=== PATIENT | female | born 1965 | race American Indian/Alaskan Native ===

== ENCOUNTER 2016-10-27 07:53 | Emergency (ER) | payer OTHER ==
[2016-10-27 08:07] VITALS: BP 137/85
[2016-10-27] MEDS ORDERED: PROVENTIL IH ONE (08:22)
[2016-10-27] MEDS ORDERED: DUONEB *Not for PRN Use IH ONE (08:23)
--- NOTE | 2016-10-27 08:25 | Emergency Department Report ---
Minor Respiratory - HPI Chief Complaint: Sore Throat Stated Complaint: COUGH AND SORE THROAT Time Seen by Provider: 10/27/16 08:10 Duration: 3 Days Pain Location: Throat, Chest Severity: mild Minor Respiratory: Yes Sore Throat, Yes Cough, No Rhinorrhea, No Able to Tolerate Fluids, No Ear Pain, No Sick Contacts, No Hemoptysis, No Chest Pain, No Shortness of Breath, No Fever ED Review of Systems ROS: Stated complaint: COUGH AND SORE THROAT Other details as noted in HPI Comment: Unobtainable due to pts medical conditions Constitutional: no symptoms reported, see HPI. denies: chills, diaphoresis, fever, malaise Eyes: as per HPI. denies: eye pain, eye discharge, vision change ENT: as per HPI, throat pain. denies: ear pain, dental pain, hearing loss, epistaxis Respiratory: no symptoms reported, see HPI, cough (non prod). denies: orthopnea , shortness of breath, SOB with exertion, SOB at rest, stridor Cardiovascular: as per HPI. denies: chest pain, palpitations, dyspnea on exertion, orthopnea, edema, syncope, paroxysmal nocturnal dyspnea Endocrine: no symptoms reported, see HPI. denies: excessive sweating, flushing , intolerance to cold, intolerance to heat Gastrointestinal: as per HPI. denies: abdominal pain, nausea, vomiting Genitourinary: as per HPI. denies: urgency, dysuria Musculoskeletal: as per HPI. denies: back pain Skin: as per HPI. denies: rash, lesions Neurological: as per HPI. denies: headache, weakness Psychiatric: as per HPI. denies: anxiety, depression Hematological/Lymphatic: as per HPI. denies: easy bleeding ED Past Medical Hx - Past Medical History Previous Medical History?: Yes Hx Diabetes: Yes (noninsulin dependent) Additional medical history: cholesterol. obesity - Surgical History Additional Surgical History: ECTOPIC X 2--BOTH TUBES REMOVED - Family History Family history: no significant - Social History Smoking Status: Never Smoker Substance Use Type: None - Medications Home Medications: Home Medications Medication Instructions Recorded Confirmed Last Taken Type AtorvaSTATin 20 mg PO DAILY 09/12/15 09/12/15 Unknown History Famotidine [Pepcid] 20 mg PO BID #30 tablet 09/12/15 Unknown Rx glipiZIDE [Glucotrol] 5 mg PO BID 09/12/15 09/12/15 Unknown History metFORMIN [Glucophage] 1,000 mg PO BID 09/12/15 09/12/15 Unknown History traMADol [Ultram 50 MG tab] 50 mg PO Q6HR PRN #20 tablet 09/12/15 Unknown Rx Erythromycin [Erythromycin Ophth 10 applic OP TID #1 tube 09/26/15 Unknown Rx Oint] Benzonatate [Tessalon Perles] 100 mg PO BID PRN #12 capsule 10/27/16 Unknown Rx Cefdinir 300 mg PO BID #20 capsule 10/27/16 Unknown Rx Minor Respiratory Exam - Exam General: Vital signs noted. No distress. Alert and acting appropriately. non ill appearing no fever non toxic appearing HEENT: Yes Pharyngeal Erythema, Yes Moist Mucous Membranes, No Pharyngeal Exudates, No Rhinorrhea, No Conjuctival Injection, No Frontal Tenderness, No Maxillary Tenderness Ear: Neither TM Bulge, Neither TM Erythema, Neither EAC Pain, Neither EAC Discharge Neck: Yes Supple, No Adenopathy Lungs: Yes Good Air Exchange, Yes Ronchi (w cough), Yes Cough, No Wheezes, No Stridor, No Labored Respirations, No Retractions, No Use of Accessory Muscles, No Other Abnormal Lung Sounds Heart: Yes Regular (96 on exam but was coughing), No Murmur Abdomen: Yes Normal Bowel Sounds, No Tenderness, No Peritoneal Signs Skin: No Rash, No Edema Neurologic: Alert and oriented, no deficits. Musculoskeletal: Unremarkable. ambulatory wo sob or cp no jvd no edema ED Course Vital Signs 10/27/16 07:58 Temperature 97.6 F Pulse Rate 109 H Respiratory 17 Rate Blood Pressure 137/85 O2 Sat by Pulse 97 Oximetry - Reevaluation(s) Reevaluation #1: 10/27/16 09:38 to er w cough non prod and no fever dm also sore throat see exam rt tx w loosing of cough no cp no sob discussed bs w pt rocephin and home rx will fu w pcp verbalizes understanding ED Medical Decision Making - Radiology Data Radiology results: image reviewed interpreted by me: nap - Medical Decision Making diabetic w cough and pharyngitis no s/s sepsis no hypotension no fever hr 96 on exam but coughing non productive outpt care - Differential Diagnosis ro pna v urti Critical care attestation.: If time is entered above; I have spent that time in minutes in the direct care of this critically ill patient, excluding procedure time. ED Disposition Clinical Impression: Upper respiratory infection, Cough, Diabetes, Hyperglycemia, Pharyngitis Disposition: TO HOME OR SELFCARE Is pt being admited?: No Does the pt Need Aspirin: No Condition: Stable Instructions: Diabetes Mellitus Type 2 in Adults (ED), Upper Respiratory Infection (ED) Additional Instructions: follow Diabetic diet take meds as ordered follow blood sugar follow up pcp on Saturday over the counter flonase for 3-5 days Prescriptions: Benzonatate [Tessalon Perles] 100 mg PO BID PRN #12 capsule PRN Reason: Cough Cefdinir 300 mg PO BID #20 capsule Referrals: PRIMARY CAREMD [Primary Care Provider] - 3-5 Days MAU COTA MD [Staff Physician] - 3-5 Days
--- NOTE | 2016-10-27 09:17 | XRay Report ---
FINAL REPORT EXAM: XR CHEST ROUTINE 2V HISTORY: cough TECHNIQUE: Frontal and lateral views of the chest. PRIORS: None currently available. FINDINGS: Cardiac silhouette is within normal limits. There is no effusion. There is no pneumothorax. There is no consolidation. There are no suspicious osseous lesions. IMPRESSION: No acute cardiopulmonary findings.
[2016-10-27] MEDS ORDERED: ROCEPHIN IM ONE (09:30)
[2016-10-27] MEDS ORDERED: XYLOCAINE 1% MPF 5 mL INFILTRATI ONE (09:30)
== END 2016-10-27 10:45 | disposition home or self-care (01) ==
LOC: ED 07:53
DX: J06.9 Acute upper respiratory infection, unspecified (principal); E11.65 Type 2 diabetes mellitus with hyperglycemia; J02.9 Acute pharyngitis, unspecified; E78.00 Pure hypercholesterolemia, unspecified
CPT/HCPCS: 71020; 82962; 94640; 96372; 99283; J0696

== ENCOUNTER 2016-12-25 15:24 | Emergency (ER) | payer MEDICAID, OTHER ==
--- NOTE | 2016-12-25 17:28 | Emergency Department Report ---
Chief Complaint: Weakness Stated Complaint: DIZZY/LIGHT HEADED Time Seen by Provider: 12/25/16 17:25 - HPI History of Present Illness: PT c/o dizziness x 2-3 days PT states gradual onset - ROS Review of Systems: - chest pain + generalized weakness - Exam Vital Signs: Vital Signs 12/25/16 15:40 Temperature 98.2 F Pulse Rate 116 H Respiratory 20 Rate Blood Pressure 138/84 O2 Sat by Pulse 98 Oximetry Physical Exam: obese female no acute distress noted steady gait gcs 15 no focal weakness MSE screening note: Focused history and physical exam performed. Due to findings the following was ordered: labs, ekg ED Disposition for MSE Condition: Stable Referrals: PRIMARY CARE, [Primary Care Provider] - 3-5 Days
[2016-12-25 18:10] LABS: Basophils % (Auto) 0.8 % (0.0-1.8); Eosinophils % (Auto) 4.2 % (0.0-4.3); Hematocrit 38.8 % (30.3-42.9); Hemoglobin 12.2 gm/dl (10.1-14.3); Mean Corpuscular HGB Conc 31 % (30-34); Mean Corpuscular Volume 81 fl (79-97); Platelet Count 296 K/mm3 (140-440); Red Blood Count 4.79 M/mm3 (3.65-5.03); Red Cell Distribution Width 15.2 % (13.2-15.2); White Blood Count 9.7 K/mm3 (4.5-11.0)
[2016-12-25 18:12] LABS: Mean Corpuscular Hemoglobin 25 pg (28-32)
[2016-12-25 18:16] LABS: Alanine Aminotransferase 10 units/L (7-56); Albumin 4.1 g/dL (3.9-5); Albumin/Globulin Ratio 1.3 %; Alkaline Phosphatase 60 units/L (35-129); BUN/Creatinine Ratio 22; Bilirubin,Total < 0.20 mg/dL (0.1-1.2); Blood Urea Nitrogen 13 mg/dL (7-17); Calcium 9.5 mg/dL (8.4-10.2); Carbon Dioxide 25 mmol/L (22-30); Glucose 112 mg/dL (65-100); Total Protein 7.3 g/dL (6.3-8.2)
[2016-12-25 18:17] LABS: Anion Gap 20 mmol/L; Chloride 101.4 mmol/L (98-107); Potassium 4.3 mmol/L (3.6-5.0); Sodium 142 mmol/L (137-145)
[2016-12-25 19:00] LABS: Bilirubin,Urine NEG (Negative); Blood,Urine NEG (Negative); Ketones,Urine NEG (Negative); Leukocyte Esterase,Urine TR (Negative); Mucus,Urine FEW /HPF; Nitrite,Urine NEG (Negative); Protein,Urine <15 mg/dL mg/dL (Negative); Urobilinogen,Urine < 2.0 mg/dL (<2.0)
[2016-12-26] MEDS ORDERED: NACL 0.9% 1000 ML 1,000 ML IV ONE (01:21)
--- NOTE | 2016-12-26 01:46 | Emergency Department Report ---
- General Chief complaint: Weakness Stated complaint: DIZZY/LIGHT HEADED Time Seen by Provider: 12/25/16 17:25 Source: patient Mode of arrival: Ambulatory Limitations: No Limitations - History of Present Illness Initial comments: 51-year-old female with a past month history of obesity, diabetes, and elevated cholesterol presents to the hospital with complaints of generalized weakness and lightheadedness for 2-3 days. Symptoms worse with activity and exertion. Positive associated dyspnea on exertion. No chest pain reported. Dry cough reported. Patient also complains of numbness continue cessation 2 feet in the bases and felt like her legs gave out on her and she ambulates. One loose stool per day reported. No complaints of nausea, vomiting, melena, hematochezia , fever, or dysuria. PMD: None the patient does see a diabetic doctor. - Related Data Home Medications Medication Instructions Recorded Confirmed Last Taken AtorvaSTATin 20 mg PO DAILY 09/12/15 09/12/15 Unknown glipiZIDE [Glucotrol] 5 mg PO BID 09/12/15 09/12/15 Unknown metFORMIN [Glucophage] 1,000 mg PO BID 09/12/15 09/12/15 Unknown Previous Rx's Medication Instructions Recorded Last Taken Type Famotidine [Pepcid] 20 mg PO BID #30 tablet 09/12/15 Unknown Rx traMADol [Ultram 50 MG tab] 50 mg PO Q6HR PRN #20 tablet 09/12/15 Unknown Rx Erythromycin [Erythromycin Ophth 10 applic OP TID #1 tube 09/26/15 Unknown Rx Oint] Benzonatate [Tessalon Perles] 100 mg PO BID PRN #12 capsule 10/27/16 Unknown Rx Cefdinir 300 mg PO BID #20 capsule 10/27/16 Unknown Rx Gabapentin [Neurontin] 300 mg PO Q8HR #90 capsule 12/26/16 Unknown Rx Sulfamethoxazole/Trimethoprim 1 each PO BID #20 tablet 12/26/16 Unknown Rx [Bactrim DS TAB] Allergies Allergy/AdvReac Type Severity Reaction Status Date / Time No Known Allergies Allergy Verified 10/27/16 07:59 ED Review of Systems ROS: Stated complaint: DIZZY/LIGHT HEADED Other details as noted in HPI Comment: All other systems reviewed and negative Other: Constitutional: No fevers chills Eyes: No eye pain visual changes ENT: No ear pain or throat pain Neck: Denies pain Respiratory: As per HPI Cardiovascular: Denies chest pain, palpitations, syncope GI: Denies abdominal pain, nausea, vomiting, diarrhea : Denies dysuria Musculoskeletal: Denies back pain Skin: Drainage from right lower abdomen "mole" Neurologic: Denies headache Psychiatric: Denies suicidal ideation, hallucinations ED Past Medical Hx - Past Medical History Hx Diabetes: Yes (noninsulin dependent) Additional medical history: cholesterol. obesity - Surgical History Additional Surgical History: ECTOPIC X 2--BOTH TUBES REMOVED - Social History Smoking Status: Never Smoker Substance Use Type: None - Medications Home Medications: Home Medications Medication Instructions Recorded Confirmed Last Taken Type AtorvaSTATin 20 mg PO DAILY 09/12/15 09/12/15 Unknown History Famotidine [Pepcid] 20 mg PO BID #30 tablet 09/12/15 Unknown Rx glipiZIDE [Glucotrol] 5 mg PO BID 09/12/15 09/12/15 Unknown History metFORMIN [Glucophage] 1,000 mg PO BID 09/12/15 09/12/15 Unknown History traMADol [Ultram 50 MG tab] 50 mg PO Q6HR PRN #20 tablet 09/12/15 Unknown Rx Erythromycin [Erythromycin Ophth 10 applic OP TID #1 tube 09/26/15 Unknown Rx Oint] Benzonatate [Tessalon Perles] 100 mg PO BID PRN #12 capsule 10/27/16 Unknown Rx Cefdinir 300 mg PO BID #20 capsule 10/27/16 Unknown Rx Gabapentin [Neurontin] 300 mg PO Q8HR #90 capsule 12/26/16 Unknown Rx Sulfamethoxazole/Trimethoprim 1 each PO BID #20 tablet 12/26/16 Unknown Rx [Bactrim DS TAB] ED Physical Exam - General Limitations: No Limitations - Other Other exam information: General: No limitations, patient is alert in no acute distress Head exam: Atraumatic, normocephalic Eyes exam: Normal appearance, pupils equal reactive to light, extraocular movements intact, no nystagmus ENT: Moist mucous membrane Neck exam: Normal inspection, full range of motion, no meningismus nontender Respiratory exam: Clear to auscultation bilateral, no wheezes, rales, crackles Cardiovascular: Normal rate and rhythm, normal heart sounds Abdomen: Soft, nondistended, and nontender, with normal bowel sounds, no rebound, or guarding Extremity: Full range of motion normal inspection no deformity, no calf tenderness or edema, 2+ DP pulse equal bilateral Back: Normal Inspection, full range of motion, no tenderness Neurologic: Alert, oriented x3, cranial nerves intact, no motor or sensory deficit, [id number] intact Psychiatric: normal affect, normal mood Skin: Patient has a right lower quadrant skin tag or pedunculated skin lesion with mild purulent malodorous drainage however, no focal abscess appreciated. No surrounding skin erythema or warmth - Assessment Assessment Interval: Baseline - Level of Consciousness 1a. Level of Consciousness: alert - LOC Questions 1b. LOC Questions: answers correctly - LOC Command 1c. LOC Commands: performs tasks correctly - Best Gaze 2. Best Gaze: normal - Visual 3. Visual: no visual loss - Facial Palsy 4. Facial Palsy: normal symmetrical movement - Motor Arm 5b. Motor Arm Right: no drift 5a. Motor Arm Left: no drift - Motor Leg 6a. Motor Leg Left: no drift 6b. Motor Leg Right: no drift - Limb Ataxia 7. Limb Ataxia: absent - Sensory 8. Sensory: normal - Best Language 9. Best Language: no aphasia - Dysarthria 10. Dysarthria: normal - Extinction and Inattention 11. Extinction/Inattention: no abnormality - Scoring Total Score: 0 Stroke Severity: No Stroke Symptoms ED Course Vital Signs 12/25/16 12/25/16 12/26/16 15:40 22:52 00:49 Temperature 98.2 F 98.8 F Pulse Rate 116 H 108 H 92 H Pulse Rate [ Lying] Pulse Rate [ Sitting] Pulse Rate [ Standing] Respiratory 20 18 18 Rate Blood Pressure 138/84 140/76 Blood Pressure 136/72 [Left] Blood Pressure [Lying] Blood Pressure [Sitting] Blood Pressure [Standing] O2 Sat by Pulse 98 97 98 Oximetry 12/26/16 12/26/16 12/26/16 03:01 03:16 04:40 Temperature Pulse Rate 98 H 93 H Pulse Rate [ 103 H Lying] Pulse Rate [ 108 H Sitting] Pulse Rate [ 105 H Standing] Respiratory 16 17 Rate Blood Pressure Blood Pressure 116/55 100/57 [Left] Blood Pressure 121/72 [Lying] Blood Pressure 130/71 [Sitting] Blood Pressure 129/79 [Standing] O2 Sat by Pulse 99 100 Oximetry - Reevaluation(s) Reevaluation #1: 12/26/16 04:49 The patient received 1 L normal saline. States she feels somewhat better. She is ambulatory around the department and denies feeling dizzy for states her legs feel weak. Patient is able to ambulate without assistance and get in and out of bed without assistance. She denies back pain or urinary symptoms. ED Medical Decision Making - Lab Data Result diagrams: 12/25/16 17:40 12/25/16 17:40 Lab Results 12/25/16 12/25/16 12/25/16 Range/Units 17:40 17:40 18:04 WBC 9.7 (4.5-11.0) K/mm3 RBC 4.79 (3.65-5.03) M/mm3 Hgb 12.2 (10.1-14.3) gm/dl Hct 38.8 (30.3-42.9) % MCV 81 (79-97) fl MCH 25 L (28-32) pg MCHC 31 (30-34) % RDW 15.2 (13.2-15.2) % Plt Count 296 (140-440) K/mm3 Lymph % (Auto) 20.2 (13.4-35.0) % [place] % (Auto) 6.8 (0.0-7.3) % Eos % (Auto) 4.2 (0.0-4.3) % Baso % (Auto) 0.8 (0.0-1.8) % Lymph # 2.0 (1.2-5.4) K/mm3 [place] # 0.7 (0.0-0.8) K/mm3 Eos # 0.4 (0.0-0.4) K/mm3 Baso # 0.1 (0.0-0.1) K/mm3 Seg Neutrophils % 68.0 (40.0-70.0) % Seg Neutrophils # 6.6 (1.8-7.7) K/mm3 D-Dimer (0-234) ng/mlDDU Sodium 142 (137-145) mmol/L Potassium 4.3 (3.6-5.0) mmol/L Chloride 101.4 (98-107) mmol/L Carbon Dioxide 25 (22-30) mmol/L Anion Gap 20 mmol/L BUN 13 (7-17) mg/dL Creatinine 0.6 L (0.7-1.2) mg/dL Estimated GFR > 60 ml/min BUN/Creatinine Ratio 22 % Glucose 112 H (65-100) mg/dL POC Glucose 114 H (70-105) Calcium 9.5 (8.4-10.2) mg/dL Magnesium (1.7-2.3) mg/dL Total Bilirubin < 0.20 (0.1-1.2) mg/dL AST 8 (5-40) units/L ALT 10 (7-56) units/L Alkaline Phosphatase 60 (35-129) units/L Total Creatine Kinase (30-135) units/L CK-MB (CK-2) (0.0-4.0) ng/mL Troponin T < 0.010 (0.00-0.029) ng/mL Total Protein 7.3 (6.3-8.2) g/dL Albumin 4.1 (3.9-5) g/dL Albumin/Globulin Ratio 1.3 % TSH (0.270-4.200) mlU/mL Free T4 (0.76-1.46) ng/dL Urine Color (Yellow) Urine Turbidity (Clear) Urine pH (5.0-7.0) Ur Specific [place] (1.003-1.030) Urine Protein (Negative) mg/dL Urine Glucose (UA) (Negative) mg/dL Urine Ketones (Negative) mg/dL Urine Blood (Negative) Urine Nitrite (Negative) Urine Bilirubin (Negative) Urine Urobilinogen (<2.0) mg/dL Ur Leukocyte Esterase (Negative) Urine WBC (Auto) (0.0-6.0) /HPF Urine RBC (Auto) (0.0-6.0) /HPF U Epithel Cells (Auto) (0-13.0) /HPF Urine Mucus /HPF 12/25/16 12/25/16 12/26/16 Range/Units 18:16 23:58 01:40 WBC (4.5-11.0) K/mm3 RBC (3.65-5.03) M/mm3 Hgb (10.1-14.3) gm/dl Hct (30.3-42.9) % MCV (79-97) fl MCH (28-32) pg MCHC (30-34) % RDW (13.2-15.2) % Plt Count (140-440) K/mm3 Lymph % (Auto) (13.4-35.0) % [place] % (Auto) (0.0-7.3) % Eos % (Auto) (0.0-4.3) % Baso % (Auto) (0.0-1.8) % Lymph # (1.2-5.4) K/mm3 [place] # (0.0-0.8) K/mm3 Eos # (0.0-0.4) K/mm3 Baso # (0.0-0.1) K/mm3 Seg Neutrophils % (40.0-70.0) % Seg Neutrophils # (1.8-7.7) K/mm3 D-Dimer 135.00 (0-234) ng/mlDDU Sodium (137-145) mmol/L Potassium (3.6-5.0) mmol/L Chloride (98-107) mmol/L Carbon Dioxide (22-30) mmol/L Anion Gap mmol/L BUN (7-17) mg/dL Creatinine (0.7-1.2) mg/dL Estimated GFR ml/min BUN/Creatinine Ratio % Glucose (65-100) mg/dL POC Glucose 164 H (70-105) Calcium (8.4-10.2) mg/dL Magnesium (1.7-2.3) mg/dL Total Bilirubin (0.1-1.2) mg/dL AST (5-40) units/L ALT (7-56) units/L Alkaline Phosphatase (35-129) units/L Total Creatine Kinase (30-135) units/L CK-MB (CK-2) (0.0-4.0) ng/mL Troponin T (0.00-0.029) ng/mL Total Protein (6.3-8.2) g/dL Albumin (3.9-5) g/dL Albumin/Globulin Ratio % TSH (0.270-4.200) mlU/mL Free T4 (0.76-1.46) ng/dL Urine Color Yellow (Yellow) Urine Turbidity Clear (Clear) Urine pH 6.0 (5.0-7.0) Ur Specific [place] 1.018 (1.003-1.030) Urine Protein <15 mg/dl (Negative) mg/dL Urine Glucose (UA) Neg (Negative) mg/dL Urine Ketones Neg (Negative) mg/dL Urine Blood Neg (Negative) Urine Nitrite Neg (Negative) Urine Bilirubin Neg (Negative) Urine Urobilinogen < 2.0 (<2.0) mg/dL Ur Leukocyte Esterase Tr (Negative) Urine WBC (Auto) 1.0 (0.0-6.0) /HPF Urine RBC (Auto) 3.0 (0.0-6.0) /HPF U Epithel Cells (Auto) 1.0 (0-13.0) /HPF Urine Mucus Few /HPF 12/26/16 12/26/16 Range/Units 01:40 01:40 WBC (4.5-11.0) K/mm3 RBC (3.65-5.03) M/mm3 Hgb (10.1-14.3) gm/dl Hct (30.3-42.9) % MCV (79-97) fl MCH (28-32) pg MCHC (30-34) % RDW (13.2-15.2) % Plt Count (140-440) K/mm3 Lymph % (Auto) (13.4-35.0) % [place] % (Auto) (0.0-7.3) % Eos % (Auto) (0.0-4.3) % Baso % (Auto) (0.0-1.8) % Lymph # (1.2-5.4) K/mm3 [place] # (0.0-0.8) K/mm3 Eos # (0.0-0.4) K/mm3 Baso # (0.0-0.1) K/mm3 Seg Neutrophils % (40.0-70.0) % Seg Neutrophils # (1.8-7.7) K/mm3 D-Dimer (0-234) ng/mlDDU Sodium (137-145) mmol/L Potassium (3.6-5.0) mmol/L Chloride (98-107) mmol/L Carbon Dioxide (22-30) mmol/L Anion Gap mmol/L BUN (7-17) mg/dL Creatinine (0.7-1.2) mg/dL Estimated GFR ml/min BUN/Creatinine Ratio % Glucose (65-100) mg/dL POC Glucose (70-105) Calcium (8.4-10.2) mg/dL Magnesium 1.90 (1.7-2.3) mg/dL Total Bilirubin (0.1-1.2) mg/dL AST (5-40) units/L ALT (7-56) units/L Alkaline Phosphatase (35-129) units/L Total Creatine Kinase 89 (30-135) units/L CK-MB (CK-2) 1.2 (0.0-4.0) ng/mL Troponin T < 0.010 (0.00-0.029) ng/mL Total Protein (6.3-8.2) g/dL Albumin (3.9-5) g/dL Albumin/Globulin Ratio % TSH 2.080 (0.270-4.200) mlU/mL Free T4 1.21 (0.76-1.46) ng/dL Urine Color (Yellow) Urine Turbidity (Clear) Urine pH (5.0-7.0) Ur Specific [place] (1.003-1.030) Urine Protein (Negative) mg/dL Urine Glucose (UA) (Negative) mg/dL Urine Ketones (Negative) mg/dL Urine Blood (Negative) Urine Nitrite (Negative) Urine Bilirubin (Negative) Urine Urobilinogen (<2.0) mg/dL Ur Leukocyte Esterase (Negative) Urine WBC (Auto) (0.0-6.0) /HPF Urine RBC (Auto) (0.0-6.0) /HPF U Epithel Cells (Auto) (0-13.0) /HPF Urine Mucus /HPF - EKG Data -: EKG Interpreted by Me (sinus tach 108, possible inferior infarct, no ST elevation [place]) - EKG Data When compared to previous EKG there are: no significant change (compared to ) - Radiology Data Radiology results: image reviewed (chest x-ray: No acute findings) - Medical Decision Making Patient has no focal weakness, back pain, she has good distal pulses. Patient describes bilateral leg weakness with prolonged activity. She started a medication for neuropathy and follow-up will be encouraged patient also be started on antibiotic for mild purulent drainage from right abdominal skin tag. Dermatology follow-up will be encouraged - Differential Diagnosis [place], PE, viral syndrome, anemia, diabetic neuropathy, electrolyte abnormalit Critical Care Time: No Critical care attestation.: If time is entered above; I have spent that time in minutes in the direct care of this critically ill patient, excluding procedure time. ED Disposition Clinical Impression: Leg weakness, bilateral, Diabetes, Diabetic neuropathy, Infected skin lesion Disposition: TO HOME OR SELFCARE Is pt being admited?: No Condition: Stable Instructions: Diabetes Mellitus Type 2 in Adults (ED), Abscess (ED), Diabetic Neuropathy (ED) Additional Instructions: Take the Medications as prescribed. Is very important that you follow up with your primary care doctor or one the doctors provided for further workup and evaluation. Return if symptoms worsen. Also follow-up with a core inserter regarding your skin lesion. Prescriptions: Gabapentin [Neurontin] 300 mg PO Q8HR #90 capsule Sulfamethoxazole/Trimethoprim [Bactrim DS TAB] 1 each PO BID #20 tablet Referrals: MILAGRO ROBERTS MD [Staff Physician] - 3-5 Days ([facility]) JAS ROJO MD [Referring] - 3-5 Days ([facility]) EDMAR NAJERA MD [Referring] - 3-5 Days (Primary care doctor) [facility] [Provider Group] - 3-5 Days (Primary care clinic) Time of Disposition: 05:01
[2016-12-26 02:26] LABS: Creatine Kinase MB 1.2 ng/mL (0.0-4.0)
[2016-12-26 02:27] LABS: Creatine Kinase 89 units/L (30-135)
[2016-12-26 04:40] VITALS: BP 100/57
[2016-12-26] MEDS ORDERED: BACTRIM DS PO ONE (04:56)
--- NOTE | 2016-12-26 09:49 | XRay Report ---
ROUTINE CHEST, TWO VIEWS: HISTORY: Shortness of breath. The trachea, heart, mediastinal contour, lung morgan and bony thorax are unremarkable. IMPRESSION: Unremarkable chest x-ray.
== END 2016-12-26 05:15 | disposition home or self-care (01) ==
LOC: ED 15:24
DX: E11.40 Type 2 diabetes mellitus with diabetic neuropathy, unspecified (principal); L08.89 Other specified local infections of the skin and subcutaneous tissue; R53.1 Weakness; E78.00 Pure hypercholesterolemia, unspecified; E66.9 Obesity, unspecified
CPT/HCPCS: 36415; 71020; 80053; 81001; 82550; 82553; 82962; 83735; 84439; 84443; 84484; 85025; 85379; 93005; 93010; 96360; 99284; J7030

== ENCOUNTER 2020-04-18 10:11 | Emergency (ER) | payer SELFPAY ==
[2020-04-18] MEDS ORDERED: SODIUM CHLORIDE 0.9% 1000 ML 1,000 ML IV ONE (11:20)
[2020-04-18 11:21] VITALS: BP 124/77
[2020-04-18 11:21] LABS: Bilirubin,Urine NEG (Negative); Blood,Urine NEG (Negative); Color,Urine Straw (Yellow); Mucus,Urine FEW /HPF; Protein,Urine <15 mg/dL mg/dL (Negative); Urobilinogen,Urine < 2.0 mg/dL (<2.0)
--- NOTE | 2020-04-18 11:31 | Emergency Department Report ---
ED General Adult HPI - General Chief complaint: Urogenital-Female Stated complaint: VAGINAL PAIN/BACK PAIN Time Seen by Provider: 04/18/20 11:04 Source: patient Mode of arrival: Ambulatory Limitations: No Limitations - History of Present Illness Initial comments: Patient is a 54-year-old female presents emergency room complaints of dysuria that began a week ago. She has associated urinary frequency, urinary urgency, back pain, vaginal itching. She denies any abdominal pain, nausea, vomiting, diarrhea, fever, vaginal discharge. She states that she has a history of type 2 diabetes and is supposed to be on Metformin 1000 mg twice daily. She states it has been a week since she has taken her medication. She states that she was supposed to be getting it from [facility] but has not gotten it. She denies any medication allergies. - Related Data Home Medications Medication Instructions Recorded Confirmed Last Taken AtorvaSTATin 20 mg PO DAILY 09/12/15 09/12/15 Unknown glipiZIDE [Glucotrol] 5 mg PO BID 09/12/15 09/12/15 Unknown Previous Rx's Medication Instructions Recorded Last Taken Type Famotidine [Pepcid] 20 mg PO BID #30 tablet 09/12/15 Unknown Rx traMADoL [Ultram 50 MG tab] 50 mg PO Q6HR PRN #20 tablet 09/12/15 Unknown Rx Erythromycin [Erythromycin Ophth 10 applic OP TID #1 tube 09/26/15 Unknown Rx Oint] Benzonatate [Tessalon Perles] 100 mg PO BID PRN #12 capsule 10/27/16 Unknown Rx Cefdinir 300 mg PO BID #20 capsule 10/27/16 Unknown Rx Gabapentin [Neurontin] 300 mg PO Q8HR #90 capsule 12/26/16 Unknown Rx Sulfamethoxazole/Trimethoprim 1 each PO BID #20 tablet 12/26/16 Unknown Rx [Bactrim DS TAB] Fluconazole (Nf) [Diflucan TAB] 150 mg PO ONCE 1 Days #1 tablet 04/18/20 Unknown Rx Phenazopyridine [Pyridium] 100 mg PO TID #9 tab 04/18/20 Unknown Rx cephALEXin [Keflex] 500 mg PO BID 7 Days #14 cap 04/18/20 Unknown Rx metFORMIN [Glucophage] 1,000 mg PO BID 30 Days #60 tab 04/18/20 Unknown Rx Allergies Allergy/AdvReac Type Severity Reaction Status Date / Time No Known Allergies Allergy Verified 10/27/16 07:59 ED Review of Systems ROS: Stated complaint: VAGINAL PAIN/BACK PAIN Other details as noted in HPI Comment: All other systems reviewed and negative ED Past Medical Hx - Past Medical History Previous Medical History?: Yes Hx Diabetes: Yes Additional medical history: cholesterol. obesity - Surgical History Past Surgical History?: Yes Additional Surgical History: ECTOPIC X 2--BOTH TUBES REMOVED - Social History Smoking Status: Never Smoker Substance Use Type: None - Medications Home Medications: Home Medications Medication Instructions Recorded Confirmed Last Taken Type AtorvaSTATin 20 mg PO DAILY 09/12/15 09/12/15 Unknown History Famotidine [Pepcid] 20 mg PO BID #30 tablet 09/12/15 Unknown Rx glipiZIDE [Glucotrol] 5 mg PO BID 09/12/15 09/12/15 Unknown History traMADoL [Ultram 50 MG tab] 50 mg PO Q6HR PRN #20 tablet 09/12/15 Unknown Rx Erythromycin [Erythromycin Ophth 10 applic OP TID #1 tube 09/26/15 Unknown Rx Oint] Benzonatate [Tessalon Perles] 100 mg PO BID PRN #12 capsule 10/27/16 Unknown Rx Cefdinir 300 mg PO BID #20 capsule 10/27/16 Unknown Rx Gabapentin [Neurontin] 300 mg PO Q8HR #90 capsule 12/26/16 Unknown Rx Sulfamethoxazole/Trimethoprim 1 each PO BID #20 tablet 12/26/16 Unknown Rx [Bactrim DS TAB] Fluconazole (Nf) [Diflucan TAB] 150 mg PO ONCE 1 Days #1 tablet 04/18/20 Unknown Rx Phenazopyridine [Pyridium] 100 mg PO TID #9 tab 04/18/20 Unknown Rx cephALEXin [Keflex] 500 mg PO BID 7 Days #14 cap 04/18/20 Unknown Rx metFORMIN [Glucophage] 1,000 mg PO BID 30 Days #60 tab 04/18/20 Unknown Rx ED Physical Exam - General Limitations: No Limitations General appearance: alert, in no apparent distress - Head Head exam: Present: atraumatic, normocephalic - Eye Eye exam: Present: normal appearance - ENT ENT exam: Present: mucous membranes moist - Respiratory Respiratory exam: Present: normal lung sounds bilaterally. Absent: respiratory distress, wheezes, rales, rhonchi, stridor, chest wall tenderness, accessory muscle use, decreased breath sounds, prolonged expiratory - Cardiovascular Cardiovascular Exam: Present: regular rate, normal rhythm, normal heart sounds. Absent: systolic murmur, diastolic murmur, rubs, gallop - GI/Abdominal GI/Abdominal exam: Present: soft, normal bowel sounds. Absent: distended, tenderness, guarding, rebound, rigid - Back Exam Back exam: Absent: CVA tenderness (R), CVA tenderness (L) - Neurological Exam Neurological exam: Present: alert, oriented X3 - Psychiatric Psychiatric exam: Present: normal affect, normal mood - Skin Skin exam: Present: warm, dry, intact ED Course Vital Signs 04/18/20 04/18/20 04/18/20 11:19 11:59 15:36 Temperature 98 F Pulse Rate 110 H 98 H Respiratory 20 18 18 Rate Blood Pressure 124/77 [Left] O2 Sat by Pulse 97 99 99 Oximetry ED Medical Decision Making - Lab Data Result diagrams: 04/18/20 13:07 04/18/20 13:07 Lab Results 04/18/20 04/18/20 04/18/20 Range/Units 10:38 11:05 13:07 WBC 10.1 (4.5-11.0) K/mm3 RBC 4.92 (3.65-5.03) M/mm3 Hgb 13.2 (10.1-14.3) gm/dl Hct 41.2 (30.3-42.9) % MCV 84 (79-97) fl MCH 27 L (28-32) pg MCHC 32 (30-34) % RDW 15.1 (13.2-15.2) % Plt Count 237 (140-440) K/mm3 Lymph % (Auto) 20.1 (13.4-35.0) % [place] % (Auto) 5.8 (0.0-7.3) % Eos % (Auto) 2.5 (0.0-4.3) % Baso % (Auto) 0.9 (0.0-1.8) % Lymph # (Auto) 2.1 (1.2-5.4) K/mm3 [place] # (Auto) 0.6 (0.0-0.8) K/mm3 Eos # (Auto) 0.3 (0.0-0.4) K/mm3 Baso # (Auto) 0.1 (0.0-0.1) K/mm3 Seg Neutrophils % 70.7 H (40.0-70.0) % Nucleated RBC % Not Reportable Seg Neutrophils # 7.5 (1.8-7.7) K/mm3 WBC Morphology Not Reportable Hypersegmented Neuts Not Reportable Hyposegmented Neuts Not Reportable Hypogranular Neuts Not Reportable Smudge Cells Not Reportable Toxic Granulation Not Reportable Toxic Vacuolation Not Reportable Dohle Bodies Not Reportable Pelger-Huet Anomaly Not Reportable Jerry Rods Not Reportable Platelet Estimate Not Reportable Clumped Platelets Not Reportable Plt Clumps, EDTA Not Reportable Large Platelets Not Reportable Giant Platelets Not Reportable Platelet Satelliting Not Reportable Plt Morphology Comment Not Reportable RBC Morphology Not Reportable Dimorphic RBCs Not Reportable Polychromasia Not Reportable Hypochromasia Not Reportable Poikilocytosis Not Reportable Anisocytosis Not Reportable Microcytosis Not Reportable Macrocytosis Not Reportable Spherocytes Not Reportable Pappenheimer Bodies Not Reportable Sickle Cells Not Reportable Target Cells Not Reportable Tear Drop Cells Not Reportable Ovalocytes Not Reportable Helmet Cells Not Reportable [place] Bodies Not Reportable [employer] Rings Not Reportable [place] Cells Not Reportable Bite Cells Not Reportable Crenated Cell Not Reportable Elliptocytes Not Reportable Acanthocytes (Spur) Not Reportable Rouleaux Not Reportable Hemoglobin C Crystals Not Reportable Schistocytes Not Reportable Malaria parasites Not Reportable López Bodies Not Reportable Hem Pathologist Commnt Not Reportable VBG pH (7.320-7.420) Sodium (137-145) mmol/L Potassium (3.6-5.0) mmol/L Chloride (98-107) mmol/L Carbon Dioxide (22-30) mmol/L Anion Gap mmol/L BUN (7-17) mg/dL Creatinine (0.6-1.2) mg/dL Estimated GFR ml/min BUN/Creatinine Ratio % Glucose (65-100) mg/dL POC Glucose 405 H (70-105) mg/dL Calcium (8.4-10.2) mg/dL Total Bilirubin (0.1-1.2) mg/dL AST (5-40) units/L ALT (7-56) units/L Alkaline Phosphatase (35-129) units/L Total Protein (6.3-8.2) g/dL Albumin (3.9-5) g/dL Albumin/Globulin Ratio % Urine Color Straw (Yellow) Urine Turbidity Slightly-cloudy (Clear) Urine pH 5.0 (5.0-7.0) Ur Specific Jud 1.027 (1.003-1.030) Urine Protein <15 mg/dl (Negative) mg/dL Urine Glucose (UA) >=500 (Negative) mg/dL Urine Ketones Neg (Negative) mg/dL Urine Blood Neg (Negative) Urine Nitrite Neg (Negative) Urine Bilirubin Neg (Negative) Urine Urobilinogen < 2.0 (<2.0) mg/dL Ur Leukocyte Esterase Mod (Negative) Urine WBC (Auto) 28.0 H (0.0-6.0) /HPF Urine RBC (Auto) 5.0 (0.0-6.0) /HPF U Epithel Cells (Auto) 2.0 (0-13.0) /HPF Urine Mucus Few /HPF 04/18/20 04/18/20 04/18/20 Range/Units 13:07 13:07 15:22 WBC (4.5-11.0) K/mm3 RBC (3.65-5.03) M/mm3 Hgb (10.1-14.3) gm/dl Hct (30.3-42.9) % MCV (79-97) fl MCH (28-32) pg MCHC (30-34) % RDW (13.2-15.2) % Plt Count (140-440) K/mm3 Lymph % (Auto) (13.4-35.0) % [place] % (Auto) (0.0-7.3) % Eos % (Auto) (0.0-4.3) % Baso % (Auto) (0.0-1.8) % Lymph # (Auto) (1.2-5.4) K/mm3 [place] # (Auto) (0.0-0.8) K/mm3 Eos # (Auto) (0.0-0.4) K/mm3 Baso # (Auto) (0.0-0.1) K/mm3 Seg Neutrophils % (40.0-70.0) % Nucleated RBC % Seg Neutrophils # (1.8-7.7) K/mm3 WBC Morphology Hypersegmented Neuts Hyposegmented Neuts Hypogranular Neuts Smudge Cells Toxic Granulation Toxic Vacuolation Dohle Bodies Pelger-Huet Anomaly Jerry Rods Platelet Estimate Clumped Platelets Plt Clumps, EDTA Large Platelets Giant Platelets Platelet Satelliting Plt Morphology Comment RBC Morphology Dimorphic RBCs Polychromasia Hypochromasia Poikilocytosis Anisocytosis Microcytosis Macrocytosis Spherocytes Pappenheimer Bodies Sickle Cells Target Cells Tear Drop Cells Ovalocytes Helmet Cells [place] Bodies [employer] [place] Mariya Cells Bite Cells Crenated Cell Elliptocytes Acanthocytes (Spur) Rouleaux Hemoglobin C Crystals Schistocytes Malaria parasites López Bodies Hem Pathologist Commnt VBG pH 7.397 (7.320-7.420) Sodium 132 L (137-145) mmol/L Potassium 5.2 H (3.6-5.0) mmol/L Chloride 98.8 (98-107) mmol/L Carbon Dioxide 25 (22-30) mmol/L Anion Gap 13 mmol/L BUN 8 (7-17) mg/dL Creatinine 0.7 (0.6-1.2) mg/dL Estimated GFR > 60 ml/min BUN/Creatinine Ratio 11 % Glucose 416 H (65-100) mg/dL POC Glucose 202 H (70-105) mg/dL Calcium 9.0 (8.4-10.2) mg/dL Total Bilirubin 0.20 (0.1-1.2) mg/dL AST 15 (5-40) units/L ALT 12 (7-56) units/L Alkaline Phosphatase 118 (35-129) units/L Total Protein 6.7 (6.3-8.2) g/dL Albumin 4.0 (3.9-5) g/dL Albumin/Globulin Ratio 1.5 % Urine Color (Yellow) Urine Turbidity (Clear) Urine pH (5.0-7.0) Ur Specific Jud (1.003-1.030) Urine Protein (Negative) mg/dL Urine Glucose (UA) (Negative) mg/dL Urine Ketones (Negative) mg/dL Urine Blood (Negative) Urine Nitrite (Negative) Urine Bilirubin (Negative) Urine Urobilinogen (<2.0) mg/dL Ur Leukocyte Esterase (Negative) Urine WBC (Auto) (0.0-6.0) /HPF Urine RBC (Auto) (0.0-6.0) /HPF U Epithel Cells (Auto) (0-13.0) /HPF Urine Mucus /HPF Vital Signs 04/18/20 04/18/20 04/18/20 11:19 11:59 15:36 Temperature 98 F Pulse Rate 110 H 98 H Respiratory 20 18 18 Rate Blood Pressure 124/77 [Left] O2 Sat by Pulse 97 99 99 Oximetry - Medical Decision Making Patient is a 54-year-old female presents emergency room complaints of dysuria t hat began a week ago. She has associated urinary frequency, urinary urgency, back pain, vaginal itching. She denies any abdominal pain, nausea, vomiting, diarrhea, fever, vaginal discharge. She states that she has a history of type 2 diabetes and is supposed to be on Metformin 1000 mg twice daily. She states it has been a week since she has taken her medication. She states that she was supposed to be getting it from [facility] but has not gotten it. She denies any medication allergies. initial vitals with mild tachycardia which improved upon repeat. no abd ttp, no CVAT. UA shows evidence of UTI. labs significant for elevated blood glucose at 416. pt given IV fluids and insulin, BG is 202. discussed all results with pt and lifestyle modifications and weight loss. pt given prescription for keflex, pyridium, and fluconazole. given refill of her metformin. advised pt Please take medication as prescribed. Please increase your water intake. Eat a low sugar/low carbohydrate diet. Follow-up with your primary care doctor. Return to emergency room immediately for any new or worsening symptoms. Critical care attestation.: If time is entered above; I have spent that time in minutes in the direct care of this critically ill patient, excluding procedure time. ED Disposition Clinical Impression: Hyperglycemia, Non compliance w medication regimen UTI (urinary tract infection) Qualifiers: Urinary tract infection type: acute cystitis Hematuria presence: without hematuria Qualified Code(s): N30.00 - Acute cystitis without hematuria Disposition: TO HOME OR SELFCARE Is pt being admited?: No Does the pt Need Aspirin: No Condition: Stable Instructions: Hyperglycemia, Urinary Tract Infection, Adult, [id number] Additional Instructions: Please take medication as prescribed. Please increase your water intake. Eat a low sugar/low carbohydrate diet. Follow-up with your primary care doctor. Return to emergency room immediately for any new or worsening symptoms. Prescriptions: Fluconazole (Nf) [Diflucan TAB] 150 mg PO ONCE 1 Days #1 tablet metFORMIN [Glucophage] 1,000 mg PO BID 30 Days #60 tab cephALEXin [Keflex] 500 mg PO BID 7 Days #14 cap Phenazopyridine [Pyridium] 100 mg PO TID #9 tab Referrals: CHI HICKEY MD [Staff Physician] - 3-5 Days [facility] [Provider Group] - 3-5 Days [facility] [Outside] - 3-5 Days PRIMARY CAREMD [Primary Care Provider] - 3-5 Days Time of Disposition: 15:24 Print Language: MOHAWK
[2020-04-18 13:27] LABS: Hematocrit 41.2 % (30.3-42.9); Hemoglobin 13.2 gm/dl (10.1-14.3); Mean Corpuscular HGB Conc 32 % (30-34); Mean Corpuscular Volume 84 fl (79-97); Red Blood Count 4.92 M/mm3 (3.65-5.03); Red Cell Distribution Width 15.1 % (13.2-15.2)
[2020-04-18 13:39] LABS: Alanine Aminotransferase 12 units/L (7-56); Blood Urea Nitrogen 8 mg/dL (7-17); Hemolysis Index 107
[2020-04-18 13:40] LABS: BUN/Creatinine Ratio 11
[2020-04-18] MEDS ORDERED: INSULIN REGULAR, HUMAN 100 UNITS/1 ML IV ONE (13:54)
[2020-04-18 13:56] LABS: Basophils # (Auto) 0.1 K/mm3 (0.0-0.1); Basophils % (Auto) 0.9 % (0.0-1.8); Eosinophils # (Auto) 0.3 K/mm3 (0.0-0.4); Eosinophils % (Auto) 2.5 % (0.0-4.3); Lymphocytes # (Auto) 2.1 K/mm3 (1.2-5.4); Lymphocytes % (Auto) 20.1 % (13.4-35.0); Monocytes # (Auto) 0.6 K/mm3 (0.0-0.8); Monocytes % (Auto) 5.8 % (0.0-7.3); Platelet Count 237 K/mm3 (140-440)
== END 2020-04-18 15:36 | disposition home or self-care (01) ==
LOC: ED 10:11
DX: E11.65 Type 2 diabetes mellitus with hyperglycemia (principal); N39.0 Urinary tract infection, site not specified; Z91.14 Patient's other noncompliance with medication regimen; Z98.890 Other specified postprocedural states; Z79.899 Other long term (current) drug therapy
CPT/HCPCS: 36415; 80053; 81001; 82805; 82962; 85007; 85025; 87086; 96361; 96374; 99283; J7030; J1815